=== PATIENT | female | born 1975 | race Caucasian/White ===

== ENCOUNTER 2021-02-18 22:56 | Emergency (ER) | payer OTHER ==
[2021-02-18 23:08] VITALS: BP 108/69; PULSE 93; RESP 18; TEMP 98.6
--- NOTE | 2021-02-18 23:37 | XR ---
EXAMINATION TYPE: XR ankle complete LT DATE OF EXAM: 02/18/2021 COMPARISON: NONE HISTORY: Ankle pain TECHNIQUE: 3 views FINDINGS: Ankle mortise is anatomic. I see no fracture nor dislocation. Joint spaces are fairly pricilla l. IMPRESSION: Negative left ankle exam.
--- NOTE | 2021-02-18 23:38 | XR ---
EXAMINATION TYPE: XR foot complete LT DATE OF EXAM: 02/18/2021 COMPARISON: NONE HISTORY: Pain TECHNIQUE: 3 views FINDINGS: Metatarsals are intact. The toes appear intact. I see no fracture nor dislocation. Joint sp aces are fairly normal. IMPRESSION: Negative left foot exam.
--- NOTE | 2021-02-18 23:48 | ED ---
Lower Extremity Injury HPI - General Chief Complaint: Extremity Injury, Lower Stated Complaint: Injury,Left Leg Time Seen by Provider: 02/18/21 23:18 Source: patient Mode of arrival: wheelchair Limitations: no limitations - History of Present Illness Initial Comments: 46 year-old female patient presents to the emergency department for evaluation of left ankle and foot pain. States earlier today she injured her ankle when trying to get her cow out of a trailer. States that the cow back up and pinned her leg between the wall of the trailer and the cow's body. States it was pinned for a few minutes while trying to get him untied. Patient states she did continue working but could barely get her boot off afterward. States it is quite swollen. Pain is over the anterior ankle. States it hurts worse when she moves it or tries to walk. Denies any pain in her knee. Denies numbness or tingling to the foot. Denies any other injuries. - Related Data Home Medications Medication Instructions Recorded Confirmed Adderall Ir 10 mg PO DAILY 05/16/20 05/16/20 Dextroamphetamine/Amphetamine 30 mg PO DAILY 05/16/20 05/16/20 [Adderall Xr] Allergies Allergy/AdvReac Type Severity Reaction Status Date / Time No Known Allergies Allergy Verified 02/18/21 23:08 Review of Systems ROS Statement: Those systems with pertinent positive or pertinent negative responses have been documented in the HPI. ROS Other: All systems not noted in ROS Statement are negative. Past Medical History Past Medical History: GERD/Reflux Additional Past Medical History / Comment(s): Narcolepsy. History of Any Multi-Drug Resistant Organisms: None Reported Past Surgical History: Breast Surgery, Orthopedic Surgery Additional Past Surgical History / Comment(s): Right shoulder surgery, breast implants. Past Anesthesia/Blood Transfusion Reactions: No Reported Reaction Past Psychological History: No Psychological Hx Reported Smoking Status: Never smoker Past Alcohol Use History: None Reported Past Drug Use History: None Reported - Past Family History Mother Family Medical History: Cancer Father Family Medical History: Cancer General Exam Limitations: no limitations General appearance: alert, in no apparent distress, other (This is a well- developed, well-nourished adult female patient in no acute distress. Vital signs upon presentation are temperature 98.6F, pulse 93, respirations 18, blood pressure 108/69, pulse ox 98% on room air.) Respiratory exam: Present: normal lung sounds bilaterally. Absent: respiratory distress, wheezes, rales, rhonchi, stridor Cardiovascular Exam: Present: regular rate, normal rhythm, normal heart sounds. Absent: systolic murmur, diastolic murmur, rubs, gallop, clicks Extremities exam: Present: tenderness (Over the medial lateral malleolus and anterior ankle.), normal capillary refill, other (Skin to the left foot is pink, warm, dry. Cap refill less than 3 seconds. Pedal and posttibial pulses are 2+. There is soft tissue swelling surrounding the left ankle. No proximal tib-fib tenderness to). Absent: full ROM (Diminished range of motion due to increased pain with movement), pedal edema, joint swelling, calf tenderness Neurological exam: Present: alert, oriented X3, CN II-XII intact Psychiatric exam: Present: normal affect, normal mood Skin exam: Present: warm, dry, intact, normal color. Absent: rash Course Vital Signs 02/18/21 23:06 Temperature 98.6 F Pulse Rate 93 Respiratory 18 Rate Blood Pressure 108/69 O2 Sat by Pulse 98 Oximetry Medical Decision Making - Medical Decision Making 46-year-old female patient presented to the emergency department for evaluation after left ankle injury. Physical examination did reveal soft tissue swelling surrounding the left ankle. Neurovascular status is intact. X-ray was obtained and showed no evidence for fracture in the ankle or foot. She was placed in ankle stirrup splint for sprain. She is educated regarding rest, ice, elevation . She is instructed to have repeat xray performed in 7-10 days if pain symptoms persist. Return parameters were discussed in detail. She verbalizes understanding and agrees with this plan. My attending is Dr. Cesar. - Radiology Data Radiology results: report reviewed, image reviewed Left foot x-ray was obtained. Report was reviewed in its entirety. Impression by Dr. Braun shows negative left foot exam. 3 views of left ankle are obtained. Report was reviewed in its entirety. Impression by Dr. Braun shows negative left ankle exam. Disposition Clinical Impression: Left ankle sprain Disposition: HOME SELF-CARE Condition: Good Instructions (If sedation given, give patient instructions): Ankle Sprain (ED) Additional Instructions: Rest, ice, elevate the ankle. Take, Motrin for pain control. Follow-up the primary care physician for recheck in 1-2 days. Return for any new, worsening, or concerning symptoms. Is patient prescribed a controlled substance at d/c from ED?: No Referrals: Karla Interiano DO [Primary Care Provider] - 1-2 days Time of Disposition: 23:48
== END 2021-02-18 23:55 | disposition home or self-care (01) ==
LOC: EC 22:56
DX: S93.402A Sprain of unspecified ligament of left ankle, initial encounter (principal); K21.9 Gastro-esophageal reflux disease without esophagitis; W23.1XXA Caught, crushed, jammed, or pinched between stationary objects, initial encounter
CPT/HCPCS: 29515; 99283